=== PATIENT | male | born 1945 | race Caucasian/White ===

== ENCOUNTER 2020-11-25 09:00 | Outpatient (CLI) | payer MEDICARE | END 2020-11-25 23:59 | disposition critical access hospital (66) | LOC: EMS 09:00 | DX: R10.9 Unspecified abdominal pain (principal); R11.10 Vomiting, unspecified | CPT/HCPCS: A0425; A0427 ==

== ENCOUNTER 2020-11-25 09:18 | Emergency (ER) | payer MEDICARE ==
[2020-11-25] MEDS ORDERED: LACTATED RINGERS 1,000 ML IV STA ×2 (09:49→12:23)
[2020-11-25] MEDS ORDERED: ONDANSETRON 4 MG/2 ML VIAL IVP STA (09:49)
[2020-11-25] MEDS ORDERED: MORPHINE 2 MG/ML CARPUJECT IVP STA (09:49)
[2020-11-25 10:01] LABS: BASOPHILS % (AUTO) 0.5 %; EOSINOPHILS # (AUTO) 0.2 10^3/uL (0.0-0.7); EOSINOPHILS % (AUTO) 2.7 %; LYMPHOCYTES # (AUTO) 0.8 10^3/uL (1.5-3.5); LYMPHOCYTES % (AUTO) 11.3 %; MEAN CORPUSCULAR HEMOGLOBIN 30.7 pg (27.0-31.0); MEAN CORPUSCULAR HGB CONC 34.7 g/dL (32.0-36.0); MEAN CORPUSCULAR VOLUME 88.5 fL (80.0-94.0); MEAN PLATELET VOLUME 9.4 fL (7.4-11.4); MONOCYTES # (AUTO) 0.5 10^3/uL (0.0-1.0); MONOCYTES % (AUTO) 7.3 %; NEUTROPHILS # (AUTO) 5.8 10^3/uL (1.5-6.6); NEUTROPHILS % (AUTO) 78.1 %; PLT - PLATELET COUNT 182 10^3/uL (130-450); RED BLOOD COUNT 4.88 10^6/uL (4.70-6.10); RED CELL DISTRIBUTION WIDTH 13.2 % (12.0-15.0); WHITE BLOOD COUNT 7.4 x10^3/uL (4.8-10.8)
[2020-11-25] MEDS ORDERED: IOVERSOL 320 100 ML VIAL IVP ONE ×2 (10:04→13:43)
[2020-11-25 10:23] LABS: ALBUMIN/GLOBULIN RATIO 1.6 (1.0-2.2); BILIRUBIN,TOTAL 1.3 mg/dL (0.2-1.0); CALCIUM 9.3 mg/dL (8.5-10.3); CREATININE 1.1 mg/dL (0.6-1.2); TOTAL PROTEIN 6.5 g/dL (6.7-8.2)
[2020-11-25] MEDS ORDERED: HYDROmorphone 1 MG/ML CARPUJECT IVP STA (10:51)
--- NOTE | 2020-11-25 11:15 | CT Report ---
PROCEDURE: Abdomen/Pelvis W INDICATIONS: Abdominal pain, acute, nonlocalized CONTRAST: IV CONTRAST: Optiray 320 ml: 100 PO CONTRAST: *NO PO CONTRAST TECHNIQUE: After the administration of IV contrast, 5 mm thick sections acquired from the diaphragms to the symp hysis. 5 mm thick coronal and sagittal reformats were acquired. For radiation dose reduction, the f ollowing was used: automated exposure control, adjustment of mA and/or kV according to patient size. COMPARISON: None. FINDINGS: Image quality: Excellent. ABDOMEN: Lung bases: Dependent atelectasis in posterior aspect of bilateral lung bases are seen. Heart size i s enlarged, no pericardial effusion. Mediastinum to me hardware is seen. Moderate amount of atheroscl erotic disease is seen. Solid organs: Liver and spleen are normal in size and enhancement. Gallbladder is within normal patino its. Biliary system is non dilated. Pancreas enhances normally. No adrenal nodules. Multiple bilate ral renal cysts are seen measures up to 5.3 x 4.9 cm cm in size in midpole of left kidney and up to 6 .4 x 6.3 cm in size in lower pole of right kidney. Kidneys are normal in size. There is prominence of left renal collecting system and left proximal ureter 4 mm stone is seen in midfoot left ureter at L 4 level series 3 image 49. No right-sided hydronephrosis. Peritoneum and bowel: There is a small hiatal hernia. Bowel loops demonstrate normal wall thickness and caliber. No free fluid or air. Appendix is visualized and is within normal limits. Extensive si gmoid diverticulosis is seen, no CT evidence of acute diverticulitis. No abscess collection. Nodes and vessels: No retroperitoneal or mesenteric adenopathy by size criteria. Ectasia of infraren al abdominal aorta is seen measures up to 2.6 cm in largest AP diameter. No abdominal aortic aneurysm . IVC is normal in size. Moderate amount of atherosclerotic disease is seen throughout the abdominal aorta. Miscellaneous: No ventral hernias. PELVIS: Genitourinary: Bladder wall thickness is normal. Enlarged prostate gland is seen with mild mass eff ect on floor of urinary bladder. Miscellaneous: No inguinal hernias or adenopathy. Bones: No suspicious bony lesions. No vertebral body compression fractures. Degenerative disc dise ase throughout lower thoracic and lumbar spine is seen. IMPRESSION: 1. 4 mm left mid ureteral stone with moderate left-sided hydronephrosis and proximal hydroureter. Oleksandr ateral renal cysts. No right-sided hydronephrosis. Normal-appearing urinary bladder. Enlarged prostat e gland with mass effect on floor of urinary bladder. 2. No bowel obstruction. Normal appendix. No free fluid of free air. Sigmoid diverticulosis without e vidence of acute diverticulitis. 3. Mild ectasia of infrarenal abdominal aorta. Extensive atherosclerotic disease. Reviewed by: Wang Darling MD on 11/25/2020 10:14 AM [facility] Approved by: Wang Darling MD on 11/25/2020 10:14 AM [facility] Station ID: [id number]
[2020-11-25 12:33] LABS: BILIRUBIN,URINE NEGATIVE (NEGATIVE); GLUCOSE, URINE (UA) NEGATIVE (NEGATIVE); KETONES,URINE (UA) 15 mg/dL (NEGATIVE); LEUKOCYTE ESTERASE, URINE NEGATIVE (NEGATIVE); NITRITE,URINE NEGATIVE (NEGATIVE); OCCULT BLOOD,URINE LARGE (NEGATIVE); PROTEIN,URINE NEGATIVE (NEGATIVE); UROBILINOGEN,URINE 0.2 (NORMAL) E.U./dL (NORMAL)
[2020-11-25 12:34] VITALS: BP 120/68
[2020-11-25 12:34] LABS: CLARITY,URINE SL. CLOUDY (CLEAR)
[2020-11-25 12:47] LABS: BACTERIA,URINE Rare /HPF (None Seen); MUCUS,URINE Few Strands; SQUAMOUS EPITHELIAL CELL,UR RARE Squamous (<= Few)
--- NOTE | 2020-12-02 07:46 | ED Physician Documentation ---
History of Present Illness - Stated complaint Stated Complaint: L FLANK PX - Chief complaint Chief Complaint: Abd Pain - History obtained from History obtained from: Patient - Additonal information Additional information: 75-year-old man with past medical history of high blood pressure, hyperlipidemia, hypothyroidism presents with gradual onset left flank pain that is nonradiating, starting this morning when sitting on the toilet. Patient states he had a large watery bowel movement and then experienced 8 or 10 pain on his left side, sharp constant without exacerbating or relieving factors, asso ciated with nonbloody nonbilious nausea vomiting x5. He was given Zofran and fentanyl en route by EMS with improvement in symptoms. Denies urinary symptoms, abdominal pain fever, chest pain, shortness of breath, diaphoresis. Review of Systems Ten Systems: 10 systems reviewed and negative Constitutional: denies: Fever, Chills GI: reports: Abdominal Pain, Nausea, Vomiting : denies: Dysuria Musculoskeletal: reports: Back pain PD PAST MEDICAL HISTORY - Present Medications Home Medications: Ambulatory Orders Medication Instructions Recorded Confirmed Aspirin 81 mg PO 03/28/13 03/28/13 Atorvastatin Calcium 10 mg PO 03/28/13 03/28/13 Cholecalciferol (Vitamin D3) 2,000 unit PO 03/28/13 03/28/13 [Vitamin D-3] Glucosamine Sulfate Dipot Chlr 1,000 mg PO 03/28/13 03/28/13 [Glucosamine] Ibuprofen 400 mg PO 03/28/13 03/28/13 Levothyroxine [Synthroid] 125 mcg PO QDAC 03/28/13 03/28/13 Lisinopril [Prinivil] 10 mg PO 03/28/13 03/28/13 Loratadine [Claritin] 10 mg 03/28/13 03/28/13 Metoprolol Succinate [Toprol Xl] 25 mg PO ONCE 03/28/13 03/28/13 Multivitamin [Multivitamins] 1 each PO 03/28/13 03/28/13 [place]-3 Fatty Acids/Fish Oil 1 each PO 03/28/13 03/28/13 [[place] 3 1,000 mg Softgel] S-Adenosylmethionine Sul Tosyl 200 mg PO 03/28/13 03/28/13 [Nic-E] Sulfamethox/Trimeth 800/160 1 each PO BID #14 tablet 03/28/13 [Bactrim Ds] Tamsulosin HCl [Flomax] 0.4 mg PO QDAC 14 Days #14 tab 11/25/20 HYDROcod/ACETAM 5/325 [[place] 5/325] 1 - 2 ea PO Q6H PRN #15 11/26/20 Ondansetron Odt [Zofran] 4 mg TL Q6H PRN #10 tab 11/26/20 Oxycodone HCl/Acetaminophen 1 each PO Q6H PRN #8 tab 11/26/20 [Percocet 10-325 mg Tablet] Sennosides/Docusate Sodium 1 each PO QDAC PRN #14 tab 11/26/20 [Senna-Docusate Sodium Tablet] polyethylene glycoL 3350 [Miralax] 17 gm PO DAILY PRN 14 Days #1 11/26/20 packet - Allergies Allergies/Adverse Reactions: Allergies Allergy/AdvReac Type Severity Reaction Status Date / Time cephalexin monohydrate * AdvReac Unknown Rash Verified 11/26/20 00:11 [From Keflex] PD ED PE NORMAL - Vitals Vital signs reviewed: Yes - General General: Alert and oriented X 3, No acute distress, Well developed/nourished - HEENT HEENT: Atraumatic, PERRL, EOMI - Neck Neck: Supple, no meningeal sign - Cardiac Cardiac: RRR - Respiratory Respiratory: No respiratory distress, Clear bilaterally - Abdomen Abdomen: Non tender, Non distended - Male Male : Deferred - Rectal Rectal: Deferred - Back Back: Other (L CVA ttp) - Derm Derm: Normal color, No rash - Extremities Extremities: No deformity - Neuro Neuro: Alert and oriented X 3 - Psych Psych: Normal mood, Normal affect Results - Vitals Vitals: Oxygen O2 Source Room air - Labs Labs: Laboratory Tests 11/25/20 11/25/20 11/25/20 09:58 09:58 11:00 WBC 7.4 RBC 4.88 Hgb 15.0 Hct 43.2 MCV 88.5 MCH 30.7 MCHC 34.7 RDW 13.2 Plt Count 182 MPV 9.4 Neut # (Auto) 5.8 Lymph # (Auto) 0.8 L [place] # (Auto) 0.5 Eos # (Auto) 0.2 Baso # (Auto) 0.0 Absolute Nucleated RBC 0.00 Nucleated RBC % 0.0 Sodium 141 Potassium 3.8 Chloride 106 Carbon Dioxide 18 L Anion Gap 17.0 H BUN 27 H Creatinine 1.1 Estimated GFR (MDRD) 65 L Glucose 148 H Lactic Acid 2.4 H Calcium 9.3 Total Bilirubin 1.3 H AST 25 ALT 35 Alkaline Phosphatase 66 Total Protein 6.5 L Albumin 4.0 Globulin 2.5 Albumin/Globulin Ratio 1.6 Lipase 35 Urine Color Urine Clarity Urine pH Ur Specific [place] Urine Protein Urine Glucose (UA) Urine Ketones Urine Occult Blood Urine Nitrite Urine Bilirubin Urine Urobilinogen Ur Leukocyte Esterase Urine RBC Urine WBC Ur Squamous Epith Cells Urine Bacteria Urine Mucus Ur Microscopic Review Urine Culture Comments 11/25/20 11:45 WBC RBC Hgb Hct MCV MCH MCHC RDW Plt Count MPV Neut # (Auto) Lymph # (Auto) [place] # (Auto) Eos # (Auto) Baso # (Auto) Absolute Nucleated RBC Nucleated RBC % Sodium Potassium Chloride Carbon Dioxide Anion Gap BUN Creatinine Estimated GFR (MDRD) Glucose Lactic Acid Calcium Total Bilirubin AST ALT Alkaline Phosphatase Total Protein Albumin Globulin Albumin/Globulin Ratio Lipase Urine Color YELLOW Urine Clarity SL. CLOUDY Urine pH 8.0 H Ur Specific [place] 1.010 Urine Protein NEGATIVE Urine Glucose (UA) NEGATIVE Urine Ketones 15 H Urine Occult Blood LARGE H Urine Nitrite NEGATIVE Urine Bilirubin NEGATIVE Urine Urobilinogen 0.2 (NORMAL) Ur Leukocyte Esterase NEGATIVE Urine RBC 11-25 H Urine WBC 4-5 Ur Squamous Epith Cells RARE Squamous Urine Bacteria Rare Urine Mucus Few Strands Ur Microscopic Review INDICATED Urine Culture Comments NOT INDICATED PD MEDICAL DECISION MAKING - ED course ED course: 75-year-old man presented with left-sided mid ureteral 4 mm stone with moderate hydronephrosis. Urinalysis noninfected. Will DC home with Flomax and ibuprofen as needed for pain. Follow-up urology. Strict return precautions given. Departure - Departure Disposition: 01 Home, Self Care Clinical Impression: Kidney stone on left side, Hydronephrosis Condition: Good Instructions: Hydronephrosis Ch, Kidney Stones Prescriptions: Tamsulosin HCl [Flomax] 0.4 mg PO QDAC 14 Days #14 tab Comments: You were seen in the emergency department for an obstructing left kidney stone in the mid ureter. It is 4 mm in size so it may be able to pass on its own, however your kidney is showing signs of hydronephrosis (backup of fluid into the kidney due to obstruction from the stone). Your kidney function is okay and you do not show any signs of infection on your urine studies. You should follow-up with urology tomorrow to make appointment in the clinic. Return immediately if you have any fevers. Return for new or other worsening symptoms or other concerns. [facility] - Urology [email or web address] [address] [place] [address] ~21.7 ut Discharge Date/Time: 11/25/20 14:19
== END 2020-11-25 14:19 | disposition home or self-care (01) ==
LOC: EDUNIT# → EDBD → ED 09:18
DX: N13.2 Hydronephrosis with renal and ureteral calculous obstruction (principal); I10 Essential (primary) hypertension; E78.5 Hyperlipidemia, unspecified; E03.9 Hypothyroidism, unspecified; Z79.82 Long term (current) use of aspirin
CPT/HCPCS: 36415; 74177; 80053; 81001; 83605; 83690; 85025; 93005; 96361; 96374; 96375; 99284; J1170; J7120; Q9967; 81003; 87086

== ENCOUNTER 2020-11-26 00:08 | Emergency (ER) | payer MEDICARE ==
[2020-11-26] MEDS ORDERED: SODIUM CHLORIDE 0.9% 1,000 ML IV STA (00:47)
[2020-11-26] MEDS ORDERED: HYDROmorphone 1 MG/ML CARPUJECT IVP STA (00:47)
[2020-11-26] MEDS ORDERED: ONDANSETRON 4 MG/2 ML VIAL IVP STA (00:47)
[2020-11-26] MEDS ORDERED: HYDROcod/ACET 5/325 Prepack 4 PO STA (01:30)
[2020-11-26] MEDS ORDERED: ONDANSETRON ODT 4 MG Prepack 2 TL PRN (01:30)
--- NOTE | 2020-11-26 01:54 | ED Physician Documentation ---
History of Present Illness - Stated complaint Stated Complaint: ABD PX - Chief complaint Chief Complaint: Abd Pain - History obtained from History obtained from: Patient - Additonal information Additional information: Emergency department chief complaint of recurrence of left flank pain after being diagnosed with a kidney stone within the last 24 hours. According to records, CT scan showed a 5 mm mid ureteral stone on the left. Patient states that what ever he was given in the emergency department helped his pain, but over the ensuing hours, the pain crept back as the medications seem to wear off. Patient states he is not sure what he was prescribed, but has not taken anything at home for the pain. Review of records reveals that the patient was prescribed Flomax and no analgesia. Patient does note that he has also been nauseated because the pain has been quite bad. Patient denies any other complaints at this time no new symptoms since discharge other than recurrence of the pain and onset of nausea. Review of Systems Ten Systems: 10 systems reviewed and negative Constitutional: reports: Reviewed and negative Eyes: reports: Reviewed and negative Ears: reports: Reviewed and negative Nose: reports: Reviewed and negative Throat: reports: Reviewed and negative Cardiac: reports: Chest pain / pressure Respiratory: reports: Reviewed and negative. denies: Dyspnea GI: reports: Reviewed and negative : reports: Reviewed and negative Skin: reports: Reviewed and negative Musculoskeletal: reports: Reviewed and negative Neurologic: reports: Reviewed and negative Psychiatric: reports: Reviewed and negative Endocrine: reports: Reviewed and negative Immunocompromised: reports: Reviewed and negative PD PAST MEDICAL HISTORY - Past Medical History Past Medical History: Yes Cardiovascular: Hypertension, Coronary artery disease Respiratory: Asthma GI: GERD : Kidney stones Psych: Anxiety - Past Surgical History Past Surgical History: Yes Cardiovascular: CABG - Present Medications Home Medications: Ambulatory Orders Medication Instructions Recorded Confirmed Aspirin 81 mg PO 03/28/13 03/28/13 Atorvastatin Calcium 10 mg PO 03/28/13 03/28/13 Cholecalciferol (Vitamin D3) 2,000 unit PO 03/28/13 03/28/13 [Vitamin D-3] Glucosamine Sulfate Dipot Chlr 1,000 mg PO 03/28/13 03/28/13 [Glucosamine] Ibuprofen 400 mg PO 03/28/13 03/28/13 Levothyroxine [Synthroid] 125 mcg PO QDAC 03/28/13 03/28/13 Lisinopril [Prinivil] 10 mg PO 03/28/13 03/28/13 Loratadine [Claritin] 10 mg 03/28/13 03/28/13 Metoprolol Succinate [Toprol Xl] 25 mg PO ONCE 03/28/13 03/28/13 Multivitamin [Multivitamins] 1 each PO 03/28/13 03/28/13 [place]-3 Fatty Acids/Fish Oil 1 each PO 03/28/13 03/28/13 [[place] 3 1,000 mg Softgel] S-Adenosylmethionine Sul Tosyl 200 mg PO 03/28/13 03/28/13 [Nic-E] Sulfamethox/Trimeth 800/160 1 each PO BID #14 tablet 03/28/13 [Bactrim Ds] Tamsulosin HCl [Flomax] 0.4 mg PO QDAC 14 Days #14 tab 11/25/20 HYDROcod/ACETAM 5/325 [[place] 5/325] 1 - 2 ea PO Q6H PRN #15 11/26/20 Ondansetron Odt [Zofran] 4 mg TL Q6H PRN #10 tab 11/26/20 - Allergies Allergies/Adverse Reactions: Allergies Allergy/AdvReac Type Severity Reaction Status Date / Time cephalexin monohydrate * AdvReac Unknown Rash Verified 11/26/20 00:11 [From Keflex] - Social History Does the pt smoke?: No Smoking Status: Never smoker Does the pt drink ETOH?: Yes ETOH Use: Wine, Beer Does the pt have substance abuse?: No - Immunizations Immunizations are current?: Yes - POLST Patient has POLST: No PD ED PE NORMAL - Vitals Vital signs reviewed: Yes - General General: Alert and oriented X 3, No acute distress (Patient appears moderately uncomfortable but otherwise no apparent distress.), Well developed/nourished - HEENT HEENT: Atraumatic, PERRL, EOMI, Moist mucous membranes - Neck Neck: Supple, no meningeal sign - Cardiac Cardiac: RRR, No murmur, Strong equal pulses - Respiratory Respiratory: No respiratory distress, Clear bilaterally - Abdomen Abdomen: Soft, Non tender, Non distended - Derm Derm: Normal color, Warm and dry, No rash - Extremities Extremities: No deformity, No edema, No calf tenderness / cord - Neuro Neuro: Alert and oriented X 3, 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 He was found to be feeling much better after dose of Dilaudid. I did give the patient a prepack for both hydrocodone and Zofran until the stone passes. I suspect that the stone is continuing to move down the ureter, in addition to pain medication wearing off, and these 2 factors are likely what has caused the patient's recurrence of pain. There is no fever or other concerning symptom to go along with this and prompt further investigation or repeat studies. We have discussed home management of the symptoms, as well as the usual indications for return Departure - Departure Disposition: 01 Home, Self Care Clinical Impression: Renal colic on left side Condition: Stable Instructions: ED Stone Renal W Colic Prescriptions: HYDROcod/ACETAM 5/325 [[place] 5/325] 1 - 2 ea PO Q6H PRN #15 PRN Reason: Pain Ondansetron Odt [Zofran] 4 mg TL Q6H PRN #10 tab PRN Reason: Nausea / Vomiting Discharge Date/Time: 11/26/20 02:09
[2020-11-26 02:04] VITALS: BP 126/61
== END 2020-11-26 02:09 | disposition home or self-care (01) ==
LOC: ED 00:08
DX: N20.1 Calculus of ureter (principal); R11.0 Nausea; I10 Essential (primary) hypertension; Z79.82 Long term (current) use of aspirin
CPT/HCPCS: 96374; 99284

== ENCOUNTER 2020-11-26 21:12 | Emergency (ER) | payer MEDICARE ==
--- NOTE | 2020-11-26 21:16 | ED Physician Documentation ---
History of Present Illness - Stated complaint Stated Complaint: LT FLANK PX - History obtained from History obtained from: Patient - Additonal information Additional information: 75-year-old man with past medical history of high blood pressure, hyperlipidemia, hypothyroidism presents with gradual onset left flank pain that is nonradiating, starting this morning while sitting on the toilet. Patient states that he had a large watery bowel movement and then experienced 8 out of 10 pain on his left side, sharp constant without exacerbating or relieving factors, associated with nonbloody nonbilious nausea vomiting x5. He was given Zofran en route by EMS with some improvement in symptoms as well as with fentanyl. Denies urinary symptoms, abd pain, fever, chest pain, shortness of breath, diaphoresis. Review of Systems Ten Systems: 10 systems reviewed and negative Constitutional: denies: Fever, Chills GI: reports: Abdominal Pain : denies: Dysuria Musculoskeletal: reports: Back pain PD PAST MEDICAL HISTORY - Past Medical History Cardiovascular: Hypertension, Coronary artery disease Respiratory: Asthma GI: GERD : Kidney stones Psych: Anxiety - Past Surgical History Past Surgical History: Yes Cardiovascular: CABG - Present Medications Home Medications: Ambulatory Orders Medication Instructions Recorded Confirmed Aspirin 81 mg PO 03/28/13 03/28/13 Atorvastatin Calcium 10 mg PO 03/28/13 03/28/13 Cholecalciferol (Vitamin D3) 2,000 unit PO 03/28/13 03/28/13 [Vitamin D-3] Glucosamine Sulfate Dipot Chlr 1,000 mg PO 03/28/13 03/28/13 [Glucosamine] Ibuprofen 400 mg PO 03/28/13 03/28/13 Levothyroxine [Synthroid] 125 mcg PO QDAC 03/28/13 03/28/13 Lisinopril [Prinivil] 10 mg PO 03/28/13 03/28/13 Loratadine [Claritin] 10 mg 03/28/13 03/28/13 Metoprolol Succinate [Toprol Xl] 25 mg PO ONCE 03/28/13 03/28/13 Multivitamin [Multivitamins] 1 each PO 03/28/13 03/28/13 [place]-3 Fatty Acids/Fish Oil 1 each PO 03/28/13 03/28/13 [[place] 3 1,000 mg Softgel] S-Adenosylmethionine Sul Tosyl 200 mg PO 03/28/13 03/28/13 [Nic-E] Sulfamethox/Trimeth 800/160 1 each PO BID #14 tablet 03/28/13 [Bactrim Ds] Tamsulosin HCl [Flomax] 0.4 mg PO QDAC 14 Days #14 tab 11/25/20 HYDROcod/ACETAM 5/325 [[place] 5/325] 1 - 2 ea PO Q6H PRN #15 11/26/20 Ondansetron Odt [Zofran] 4 mg TL Q6H PRN #10 tab 11/26/20 - Allergies Allergies/Adverse Reactions: Allergies Allergy/AdvReac Type Severity Reaction Status Date / Time cephalexin monohydrate * AdvReac Unknown Rash Verified 11/26/20 00:11 [From Keflex] - Social History Does the pt smoke?: No Smoking Status: Never smoker Does the pt drink ETOH?: Yes Does the pt have substance abuse?: No - Immunizations Immunizations are current?: Yes - POLST Patient has POLST: No PD ED PE NORMAL - Vitals Vital signs reviewed: Yes - General General: Alert and oriented X 3, No acute distress - HEENT HEENT: Atraumatic - Cardiac Cardiac: RRR - Respiratory Respiratory: No respiratory distress, Clear bilaterally - Abdomen Abdomen: Non tender, Non distended - Male Male : Deferred - Rectal Rectal: Deferred - Back Back: Other (L CVA ttp) - Derm Derm: Normal color - Extremities Extremities: No deformity - Neuro Neuro: Alert and oriented X 3 - Psych Psych: Normal mood, Normal affect Results - Vitals Vitals: Oxygen O2 Source Room air PD MEDICAL DECISION MAKING - ED course ED course: 75-year-old man presented with left-sided mid ureteral 4 mm stone with moderate hydronephrosis. Urinalysis noninfected. Will DC home with Flomax and ibuprofen as needed for pain. Follow-up urology. Strict return precautions given
[2020-11-26] MEDS ORDERED: LACTATED RINGERS 1,000 ML IV STA (21:36)
[2020-11-26] MEDS ORDERED: MORPHINE 10 MG/ML VIAL IVP STA (21:37)
[2020-11-26 21:39] LABS: BILIRUBIN,URINE NEGATIVE (NEGATIVE); GLUCOSE, URINE (UA) NEGATIVE (NEGATIVE); KETONES,URINE (UA) TRACE mg/dL (NEGATIVE); LEUKOCYTE ESTERASE, URINE NEGATIVE (NEGATIVE); NITRITE,URINE NEGATIVE (NEGATIVE); OCCULT BLOOD,URINE MODERATE (NEGATIVE); PH,URINE 5.5 PH (5.0-7.5); PROTEIN,URINE NEGATIVE (NEGATIVE); UROBILINOGEN,URINE 0.2 (NORMAL) E.U./dL (NORMAL)
[2020-11-26 21:40] LABS: CLARITY,URINE CLEAR (CLEAR)
[2020-11-26 21:49] LABS: BACTERIA,URINE None Seen /HPF (None Seen); SQUAMOUS EPITHELIAL CELL,UR NONE SEEN (<= Few)
[2020-11-26 21:50] LABS: BASOPHILS # (AUTO) 0.1 10^3/uL (0.0-0.1); BASOPHILS % (AUTO) 0.5 %; EOSINOPHILS # (AUTO) 0.1 10^3/uL (0.0-0.7); EOSINOPHILS % (AUTO) 0.9 %; HGB - HEMOGLOBIN 13.4 g/dL (14.0-18.0); LYMPHOCYTES # (AUTO) 0.5 10^3/uL (1.5-3.5); LYMPHOCYTES % (AUTO) 4.9 %; MEAN CORPUSCULAR HEMOGLOBIN 30.9 pg (27.0-31.0); MEAN CORPUSCULAR HGB CONC 33.4 g/dL (32.0-36.0); MEAN CORPUSCULAR VOLUME 92.4 fL (80.0-94.0); MEAN PLATELET VOLUME 9.4 fL (7.4-11.4); MONOCYTES # (AUTO) 0.7 10^3/uL (0.0-1.0); MONOCYTES % (AUTO) 7.3 %; NEUTROPHILS # (AUTO) 7.9 10^3/uL (1.5-6.6); NEUTROPHILS % (AUTO) 86.2 %; PLT - PLATELET COUNT 170 10^3/uL (130-450); RED BLOOD COUNT 4.34 10^6/uL (4.70-6.10); RED CELL DISTRIBUTION WIDTH 13.5 % (12.0-15.0); WHITE BLOOD COUNT 9.1 x10^3/uL (4.8-10.8)
[2020-11-26 21:57] LABS: CALCIUM 8.8 mg/dL (8.5-10.3); CREATININE 1.2 mg/dL (0.6-1.2)
--- NOTE | 2020-11-26 22:03 | ED Physician Documentation ---
History of Present Illness - Stated complaint Stated Complaint: LT FLANK PX - Chief complaint Chief Complaint: Abd Pain - History obtained from History obtained from: Patient - Additonal information Additional information: 75-year-old man, just seen here multiple times over the past 24 hours for left 4 mm mid ureter stone with persistent pain after discharge, given oxycodone on 2nd visit for pain control, presents again this evening because he is unable to sleep and states he feels constipated and has not had a BM since the pain initially began. States that his pain improved with IV dilaudid in the emergency department and is unrelieved with oxycodone. earlier today it was 8/10, LUQ radiating to L flank, and has now regressed to a 3/10. sharp, intermittent. denies fevers/urinary sx. denies vomiting . Review of Systems Ten Systems: 10 systems reviewed and negative Constitutional: denies: Fever, Chills GI: reports: Abdominal Pain. denies: Vomiting : denies: Dysuria Musculoskeletal: reports: Back pain PD PAST MEDICAL HISTORY - Past Medical History Cardiovascular: Hypertension, Coronary artery disease Respiratory: Asthma GI: GERD : Kidney stones Psych: Anxiety - Past Surgical History Past Surgical History: Yes Cardiovascular: CABG - Present Medications Home Medications: Ambulatory Orders Medication Instructions Recorded Confirmed Aspirin 81 mg PO 03/28/13 03/28/13 Atorvastatin Calcium 10 mg PO 03/28/13 03/28/13 Cholecalciferol (Vitamin D3) 2,000 unit PO 03/28/13 03/28/13 [Vitamin D-3] Glucosamine Sulfate Dipot Chlr 1,000 mg PO 03/28/13 03/28/13 [Glucosamine] Ibuprofen 400 mg PO 03/28/13 03/28/13 Levothyroxine [Synthroid] 125 mcg PO QDAC 03/28/13 03/28/13 Lisinopril [Prinivil] 10 mg PO 03/28/13 03/28/13 Loratadine [Claritin] 10 mg 03/28/13 03/28/13 Metoprolol Succinate [Toprol Xl] 25 mg PO ONCE 03/28/13 03/28/13 Multivitamin [Multivitamins] 1 each PO 03/28/13 03/28/13 [place]-3 Fatty Acids/Fish Oil 1 each PO 03/28/13 03/28/13 [[place] 3 1,000 mg Softgel] S-Adenosylmethionine Sul Tosyl 200 mg PO 03/28/13 03/28/13 [Nic-E] Sulfamethox/Trimeth 800/160 1 each PO BID #14 tablet 03/28/13 [Bactrim Ds] Tamsulosin HCl [Flomax] 0.4 mg PO QDAC 14 Days #14 tab 11/25/20 HYDROcod/ACETAM 5/325 [[place] 5/325] 1 - 2 ea PO Q6H PRN #15 11/26/20 Ondansetron Odt [Zofran] 4 mg TL Q6H PRN #10 tab 11/26/20 Oxycodone HCl/Acetaminophen 1 each PO Q6H PRN #8 tab 11/26/20 [Percocet 10-325 mg Tablet] Sennosides/Docusate Sodium 1 each PO QDAC PRN #14 tab 11/26/20 [Senna-Docusate Sodium Tablet] polyethylene glycoL 3350 [Miralax] 17 gm PO DAILY PRN 14 Days #1 11/26/20 packet - Allergies Allergies/Adverse Reactions: Allergies Allergy/AdvReac Type Severity Reaction Status Date / Time cephalexin monohydrate * AdvReac Unknown Rash Verified 11/26/20 00:11 [From Keflex] - Social History Does the pt smoke?: No Smoking Status: Never smoker Does the pt drink ETOH?: Yes Does the pt have substance abuse?: No - Immunizations Immunizations are current?: Yes - POLST Patient has POLST: No PD ED PE NORMAL - Vitals Vital signs reviewed: Yes - General General: Alert and oriented X 3, No acute distress, Well developed/nourished - HEENT HEENT: Atraumatic, PERRL, EOMI - Neck Neck: Supple, no meningeal sign - Cardiac Cardiac: RRR - Respiratory Respiratory: No respiratory distress, Clear bilaterally - Abdomen Abdomen: Non tender, Non distended - Male Male : Deferred - Rectal Rectal: Deferred - Back Back: Other (L CVA ttp) - Derm Derm: Normal color - Extremities Extremities: No deformity - Neuro Neuro: Alert and oriented X 3 Results - Vitals Vitals: Vital Signs - 24 hr 11/26/20 21:18 Temperature 36.7 C Heart Rate 63 Respiratory 16 Rate Blood Pressure 151/86 H O2 Saturation 98 Oxygen O2 Source Room air - Labs Labs: Laboratory Tests 11/26/20 11/26/20 11/26/20 21:15 21:43 21:43 WBC 9.1 RBC 4.34 L Hgb 13.4 L Hct 40.1 L MCV 92.4 MCH 30.9 MCHC 33.4 RDW 13.5 Plt Count 170 MPV 9.4 Neut # (Auto) 7.9 H Lymph # (Auto) 0.5 L [place] # (Auto) 0.7 Eos # (Auto) 0.1 Baso # (Auto) 0.1 Absolute Nucleated RBC 0.00 Nucleated RBC % 0.0 Sodium 134 L Potassium 4.3 Chloride 104 Carbon Dioxide 21 Anion Gap 9.0 BUN 24 H Creatinine 1.2 Estimated GFR (MDRD) 59 L Glucose 128 H Calcium 8.8 Urine Color DARK YELLOW Urine Clarity CLEAR Urine pH 5.5 Ur Specific [place] >=1.030 H Urine Protein NEGATIVE Urine Glucose (UA) NEGATIVE Urine Ketones TRACE Urine Occult Blood MODERATE H Urine Nitrite NEGATIVE Urine Bilirubin NEGATIVE Urine Urobilinogen 0.2 (NORMAL) Ur Leukocyte Esterase NEGATIVE Urine RBC 11-25 H Urine WBC 0-3 Ur Squamous Epith Cells NONE SEEN Urine Bacteria None Seen Ur Microscopic Review INDICATED Urine Culture Comments NOT INDICATED PD MEDICAL DECISION MAKING - ED course ED course: 75-year-old man, recently diagnosed with kidney stone with moderate left hydronephrosis presents with persistent pain and with new onset constipation and sensation of bloating in the abdomen. Bedside ultrasound without worsening of his hydronephrosis. Urine still clear of infection. Creatinine not significantly worsening. Patient states that he is working on referral for urology through his primary doctor/insurance. will give ivf, pain meds, reassess. Improvement in pain s/p IV morphine. patient requesting dose of dilaudid prior to discharge since it helped yesterday. his is driving him home. will also give script for stool softener/laxative. Departure - Departure Disposition: 01 Home, Self Care Clinical Impression: Kidney stone, Bloating, Constipation Condition: Good Instructions: ED Constipation, Kidney Stones Prescriptions: polyethylene glycoL 3350 [Miralax] 17 gm PO DAILY PRN 14 Days #1 packet PRN Reason: Constipation Oxycodone HCl/Acetaminophen [Percocet 10-325 mg Tablet] 1 each PO Q6H PRN #8 tab PRN Reason: Pain Sennosides/Docusate Sodium [Senna-Docusate Sodium Tablet] 1 each PO QDAC PRN #14 tab PRN Reason: Constipation Comments: You have been seen in the emergency department for follow-up of kidney stone as well as developing constipation. Make sure that you drink tons of water (at least 8 cups of water a day.) Your kidney function tests have not significantly changed from when your last tested. Your urine does not show signs of infection. We gave you IV fluids and pain medication. Oxycodone and Percocet can cause constipation so you should take MiraLAX and a stool softener to prevent this. Return to the emergency department if you have any new or wo rsening symptoms or other concerns. Follow-up with urology.
[2020-11-26] MEDS ORDERED: HYDROmorphone 1 MG/ML CARPUJECT IVP STA (22:21)
[2020-11-26 22:46] VITALS: BP 148/90
== END 2020-11-26 23:05 | disposition home or self-care (01) ==
LOC: ED 21:12
DX: N13.2 Hydronephrosis with renal and ureteral calculous obstruction (principal); K59.00 Constipation, unspecified; R11.2 Nausea with vomiting, unspecified; I10 Essential (primary) hypertension; E78.5 Hyperlipidemia, unspecified; E03.9 Hypothyroidism, unspecified; Z79.82 Long term (current) use of aspirin
CPT/HCPCS: 36415; 80048; 81001; 85025; 96374; 96375; 99283; 99284; J1170; J7120; 81003; 87086

== ENCOUNTER 2021-12-04 16:55 | Emergency (ER) | payer MEDICARE ==
--- NOTE | 2021-12-04 17:20 | ED Physician Documentation ---
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 Over the last 3 days he has noticed especially at night a pulsating sensation to the left of midline in the abdomen radiating up to the chest. Does not radiate to the back. He took a 2 mile walk today which did not make the pain worse, it seems worse when he is trying to rest and is supine. There is no associated pedal edema or shortness of breath. We brought the to the bedside, and she was able to corroborate that he does have a history of a murmur with some sort of leaky valve, she does not know the specifics. Review of Systems Ten Systems: 10 systems reviewed and negative Constitutional: denies: Fever, Chills Ears: reports: Reviewed and negative Nose: reports: Reviewed and negative Throat: reports: Reviewed and negative Cardiac: reports: Reviewed and negative Respiratory: reports: Reviewed and negative PD PAST MEDICAL HISTORY - Past Medical History Cardiovascular: Hypertension, Coronary artery disease Respiratory: Asthma GI: GERD : Kidney stones Psych: Anxiety - Past Surgical History Past Surgical History: Yes Cardiovascular: CABG - Present Medications Home Medications: Ambulatory Orders Medication Instructions Recorded Confirmed Aspirin 81 mg PO 03/28/13 03/28/13 Atorvastatin Calcium 10 mg PO 03/28/13 03/28/13 Cholecalciferol (Vitamin D3) 2,000 unit PO 03/28/13 03/28/13 [Vitamin D-3] Glucosamine Sulfate Dipot Chlr 1,000 mg PO 03/28/13 03/28/13 [Glucosamine] Ibuprofen 400 mg PO 03/28/13 03/28/13 Levothyroxine [Synthroid] 125 mcg PO QDAC 03/28/13 03/28/13 Loratadine [Claritin] 10 mg 03/28/13 03/28/13 Metoprolol Succinate [Toprol Xl] 25 mg PO ONCE 03/28/13 03/28/13 Multivitamin [Multivitamins] 1 each PO 03/28/13 03/28/13 [place]-3 Fatty Acids/Fish Oil 1 each PO 03/28/13 03/28/13 [[place] 3 1,000 mg Softgel] S-Adenosylmethionine Sul Tosyl 200 mg PO 03/28/13 03/28/13 [Nic-E] Sulfamethox/Trimeth 800/160 1 each PO BID #14 tablet 03/28/13 [Bactrim Ds] lisinopriL [Prinivil] 10 mg PO 03/28/13 03/28/13 Tamsulosin HCl [Flomax] 0.4 mg PO QDAC 14 Days #14 tab 11/25/20 HYDROcod/ACETAM 5/325 [[place] 5/325] 1 - 2 ea PO Q6H PRN #15 11/26/20 Ondansetron Odt [Zofran] 4 mg TL Q6H PRN #10 tab 11/26/20 Oxycodone HCl/Acetaminophen 1 each PO Q6H PRN #8 tab 11/26/20 [Percocet 10-325 mg Tablet] Sennosides/Docusate Sodium 1 each PO QDAC PRN #14 tab 11/26/20 [Senna-Docusate Sodium Tablet] polyethylene glycoL 3350 [Miralax] 17 gm PO DAILY PRN 14 Days #1 11/26/20 packet Omeprazole 40 mg PO DAILY #30 cap 12/04/21 - Allergies Allergies/Adverse Reactions: Allergies Allergy/AdvReac Type Severity Reaction Status Date / Time cephalexin monohydrate * AdvReac Unknown Rash Verified 12/04/21 17:06 [From [employer]] - Social History Does the pt smoke?: No Smoking Status: Never smoker Does the pt drink ETOH?: Yes Does the pt have substance abuse?: No - Immunizations Immunizations are current?: Yes - POLST Patient has POLST: No PD ED PE NORMAL - Vitals Vital signs reviewed: Yes - General General: Alert and oriented X 3, No acute distress - Neck Neck: Supple, no meningeal sign, No bony TTP - Cardiac Cardiac: RRR, Other (He has a 1 out of 6 decrescendo systolic murmur heard best at the right upper sternal border and pulsatile JVP) - Respiratory Respiratory: No respiratory distress, Clear bilaterally - Abdomen Abdomen: Normal bowel sounds, Soft, Non tender - Back Back: No CVA TTP, No spinal TTP - Derm Derm: Normal color, Warm and dry - Extremities Extremities: No edema, No calf tenderness / cord - Neuro Neuro: Alert and oriented X 3, No motor deficit, No sensory deficit, Normal speech Eye Opening: Spontaneous Motor: Obeys Commands Verbal: Oriented GCS Score: 15 Results - Vitals Vitals: Vital Signs - 24 hr 12/04/21 12/04/21 16:59 19:05 Temperature 36.1 C L Heart Rate 57 L 60 Respiratory 16 15 Rate Blood Pressure 158/70 H 124/88 H O2 Saturation 100 99 Oxygen O2 Source Room air - EKG (time done) 1703 Rate: Rate (enter#) (54) Rhythm: NSR, LAE [place]: Normal Intervals: Normal [place] QRS: Normal Ischemia: Normal ST segments - Labs Labs: Laboratory Tests 12/04/21 12/04/21 12/04/21 17:25 17:25 17:25 WBC 8.0 RBC 4.54 L Hgb 14.4 Hct 42.8 MCV 94.3 H MCH 31.7 H MCHC 33.6 RDW 13.2 Plt Count 185 MPV 9.7 Neut # (Auto) 6.1 Lymph # (Auto) 0.9 L [place] # (Auto) 0.7 Eos # (Auto) 0.3 Baso # (Auto) 0.1 Absolute Nucleated RBC 0.00 Nucleated RBC % 0.0 Sodium 136 Potassium 4.0 Chloride 105 Carbon Dioxide 21 Anion Gap 10.0 BUN 39 H Creatinine 0.8 Estimated GFR (MDRD) 94 Glucose 93 Calcium 9.3 Total Bilirubin 0.7 AST 20 ALT 25 Alkaline Phosphatase 67 Troponin I High Sens 8.1 Total Protein 6.9 Albumin 3.9 Globulin 3.0 Albumin/Globulin Ratio 1.3 Lipase 41 - Rads (name of study) CTA CHEST/ABD Radiology: EMP read contemporaneously PD MEDICAL DECISION MAKING - ED course ED course: 76-year-old gentleman with pulsatile pain of the left mid abdomen radiating up to the chest. It is not exertional. It started a couple of days ago and seems to be intermittent, worse at rest and when supine. Of note a few days before that started develop a sciatica exacerbation and started taking naproxen. CT imaging to rule out vascular pathology was negative except for coronary disease, but did note hiatal hernia and other incidental findings which were shared with the patient and his and discussed need for follow-up imaging for the renal cyst and pulmonary nodule. He was pain-free while here but develops more pain but that resolved with a GI cocktail and as such I think the hiatal hernia in combination with gastritis from recent naproxen use may be contributing. There is no evidence of active coronary disease. Departure - Departure Disposition: 01 Home, Self Care Clinical Impression: Atypical chest pain, Hiatal hernia, Pulmonary nodule, Renal cyst Abdominal pain Qualifiers: Abdominal location: left upper quadrant Qualified Code(s): R10.12 - Left upper quadrant pain Condition: Good Record reviewed to determine appropriate education?: Yes Instructions: ED Abdominal Pain Unkn Cause Male Prescriptions: Omeprazole 40 mg PO DAILY #30 cap Comments: As discussed, I believe your pain today may be related to your hiatal hernia. Thankfully there is no evidence of aortic pathology nor acute coronary syndrome. I would discontinue the naproxen as that may be contributing as well. You can take acetaminophen instead. As discussed, findings on today's work-up demonstrated a small pulmonary nodule, the radiologist recommends a repeat CT scan in 6 to 12 months and a kidney cyst, also needing a repeat CT, renal protocol, in the same timeframe.
[2021-12-04 17:29] LABS: BASOPHILS # (AUTO) 0.1 10^3/uL (0.0-0.1); BASOPHILS % (AUTO) 0.7 %; EOSINOPHILS # (AUTO) 0.3 10^3/uL (0.0-0.7); EOSINOPHILS % (AUTO) 3.7 %; HCT - HEMATOCRIT 42.8 % (42.0-52.0); HGB - HEMOGLOBIN 14.4 g/dL (14.0-18.0); LYMPHOCYTES # (AUTO) 0.9 10^3/uL (1.5-3.5); LYMPHOCYTES % (AUTO) 11.2 %; MEAN CORPUSCULAR HEMOGLOBIN 31.7 pg (27.0-31.0); MEAN CORPUSCULAR HGB CONC 33.6 g/dL (32.0-36.0); MEAN CORPUSCULAR VOLUME 94.3 fL (80.0-94.0); MEAN PLATELET VOLUME 9.7 fL (7.4-11.4); MONOCYTES # (AUTO) 0.7 10^3/uL (0.0-1.0); MONOCYTES % (AUTO) 8.5 %; NEUTROPHILS # (AUTO) 6.1 10^3/uL (1.5-6.6); NEUTROPHILS % (AUTO) 75.5 %; PLT - PLATELET COUNT 185 10^3/uL (130-450); RED BLOOD COUNT 4.54 10^6/uL (4.70-6.10); RED CELL DISTRIBUTION WIDTH 13.2 % (12.0-15.0)
[2021-12-04] MEDS ORDERED: IOVERSOL 320 100 ML VIAL IVP ONE ×2 (17:33→18:59)
[2021-12-04 17:54] LABS: ALBUMIN 3.9 g/dL (3.2-5.5); ALBUMIN/GLOBULIN RATIO 1.3 (1.0-2.2); BILIRUBIN,TOTAL 0.7 mg/dL (0.2-1.0); CALCIUM 9.3 mg/dL (8.5-10.3); CREATININE 0.8 mg/dL (0.6-1.2); TOTAL PROTEIN 6.9 g/dL (6.7-8.2)
--- NOTE | 2021-12-04 19:09 | CT Report ---
PROCEDURE: ANGIO CHEST W/WO INDICATIONS: aorta protocol, chest/abd pain CONTRAST: IV CONTRAST: Optiray 320 ml: 100 PO CONTRAST: *NO PO CONTRAST TECHNIQUE: After the administration of intravenous contrast, 2 mm axial images were acquired from the pulmonary apices to the posterior costophrenic angles during the arterial phase. In addition, 1 mm lung kernel and 5 mm soft tissue kernel reconstructions were performed. 3-dimensional coronal oblique maximum int ensity projection (MIP) reformats, 8 mm axial MIP, and 5 mm coronal and sagittal MPR reformats were t hen performed through the thorax. For radiation dose reduction, the following was used: automated exp osure control, adjustment of mA and/or kV according to patient size. COMPARISON: None FINDINGS: Image quality: Excellent. Pulmonary arteries: Pulmonary arteries are normal in size, and demonstrate no intraluminal filling d efects to suggest central pulmonary embolism. Lungs and pleura: No evidence of pneumonia nor edema. Subpleural left lower lobe nodule in the publications sales representative ior lateral aspect measuring 6 mm. No pleural effusions or pneumothorax. Central and peripheral airw ays are patent. Mediastinum: Heart size is normal, without pericardial effusion. Moderate calcification of the chele nary vasculature. No mediastinal or hilar adenopathy. Thoracic aorta is normal in caliber and enhanc ement. Esophagus is normal in caliber. Small hiatal hernia. Bones and chest wall: No suspicious bony lesions. Ribs and thoracic spine appear intact throughout. No axillary or supraclavicular adenopathy. Thyroid not seen Abdomen: Visualized upper abdominal solid organs appear normal in the early arterial phase of enhanc ement. IMPRESSION: 1. Negative evaluation of the thoracic aorta. 2. Coronary artery disease. 3. Small hiatal hernia. 4. Left lower lobe pulmonary nodule. Follow-up is recommended as below. Solid nodules Solitary nodule size: <6 mm *low risk patients: no follow-up needed *high risk patients: optional CT at 12 months Solitary nodule size: 6-8 mm *low risk patients: follow-up at 6-12 months, then consider further follow-up at 18-24 months *high risk patients: initial follow-up CT at 6-12 months and then at 18-24 months if no change Solitary nodule size: >8 mm *either low or high risk patients *consider follow-up CT at 3 months, and/or CT-PET, and/or biopsy Multiple nodules size: <6 mm *low risk patients: no routine follow-up *high risk patients: optional CT at 12 months Multiple nodules size: 6-8 mm *low risk patients: follow-up at 3-6 months, then consider further follow-up at 18-24 months *high risk patients: follow-up at 3-6 months, then at 18-24 months if no change Multiple nodules size: >8 mm *low risk patients: follow-up at 3-6 months, then consider further follow-up at 18-24 months *high risk patients: follow-up at 3-6 months, then at 18-24 months if no change Subsolid nodules Solitary pure ground-glass nodule *nodule size <6mm *no CT follow-up required *nodule size "e6mm *follow up CT at 6-12 months, then every 2 years until 5 years Solitary part-solid nodule *nodule size <6mm *no CT follow-up required *nodule size "e6mm *follow-up CT at 3-6 months *if unchanged, and solid component remains <6mm, then annual follow-up for 5 years Multiple subsolid nodules *nodule size <6mm *follow-up CT at 3-6 months *consider further follow-up at 2 and 4 years if stable *nodule size "e6mm *follow-up CT at 3-6 months subsequent management based on the most suspicious nodule(s) CLINICAL RECOMMENDATION STATEMENTS: In patients <35 years with an ITN detected on CT, MRI, or extrathyroidal ultrasound, the Committee re commends further evaluation with dedicated thyroid ultrasound if the nodule is "e1 cm and has no susp icious imaging features, and if the patient has normal life expectancy. In patients "e35 years with an ITN detected on CT, MRI, or extrathyroidal ultrasound, the Committee r ecommends further evaluation with dedicated thyroid ultrasound if the nodule is "e1.5 cm and has no s uspicious imaging features, and if the patient has normal life expectancy. (ACR, 2014) Reviewed by: Gonzales Baca MD on 12/04/2021 7:08 PM PST Approved by: Gonzales Baca MD on 12/04/2021 7:08 PM PST Station ID: [id number]
--- NOTE | 2021-12-04 19:12 | CT Report ---
PROCEDURE: ANGIO ABDOMEN/PELVIS W INDICATIONS: aorta protocol, chest/abd pain CONTRAST: IV CONTRAST: Optiray 320 ml: 100 PO CONTRAST: *NO PO CONTRAST TECHNIQUE: After the administration of intravenous contrast, 2.5 mm thick sections acquired from the diaphragm t o the symphysis. 10 mm maximum-intensity projection (MIP) reformats were then acquired. For radiati on dose reduction, the following was used: automated exposure control. COMPARISON: CT dated 11/25/2020 FINDINGS: Image quality: Excellent. Arterial tree: Moderate diffuse plaque within the abdominal aorta, without evidence of significant s tenosis, aneurysm, nor dissection. Mesenteric arteries: Celiac trunk, superior and inferior mesenteric arteries appear patent. Extravascular soft tissues: Lung bases are clear. Heart size is normal. Liver and spleen are hernandez l in size and enhancement. Gallbladder is within normal limits. Biliary system is non dilated. Redd creas enhances normally. No adrenal nodules. Septated cyst measuring 70 mm involving the inferior po le right kidney which demonstrates mural calcifications, which is not significantly changed. Kidneys are otherwise normal in size and enhancement, without hydronephrosis. Small hiatal hernia. Non opaci fied bowel loops are normal in wall thickness and caliber. Normal appendix. No free fluid or air. N o retroperitoneal or mesenteric adenopathy. No ventral hernias. No suspicious bony lesions. No akira tebral body compression fractures. IMPRESSION: 1. No acute process involving the abdominal aorta. 2. Small hiatal hernia. 3. Normal appendix. 4 Indeterminate right renal cyst. Follow-up renal protocol CT in 6 months recommended for further ass essment. Reviewed by: Gonzales Baca MD on 12/04/2021 7:10 PM PST Approved by: Gonzales Baca MD on 12/04/2021 7:10 PM PST Station ID: [id number]
[2021-12-04] MEDS ORDERED: MAG HYDROX/AL HYDROX/SIMETH 30 ML UDC PO STA (19:26)
[2021-12-04] MEDS ORDERED: LIDOCAINE VISCOUS 2% 15 ML UDC MM STA (19:26)
[2021-12-04] MEDS ORDERED: PANTOPRAZOLE 40 MG TABLET PO STA (19:45)
[2021-12-04 19:53] VITALS: BP 148/78
== END 2021-12-04 19:51 | disposition home or self-care (01) ==
LOC: ED 16:55
DX: R07.89 Other chest pain (principal); K44.9 Diaphragmatic hernia without obstruction or gangrene; K29.70 Gastritis, unspecified, without bleeding; R10.12 Left upper quadrant pain; R91.1 Solitary pulmonary nodule; N28.1 Cyst of kidney, acquired; I10 Essential (primary) hypertension; I25.10 Atherosclerotic heart disease of native coronary artery without angina pectoris; Z95.1 Presence of aortocoronary bypass graft; R01.1 Cardiac murmur, unspecified; Z79.82 Long term (current) use of aspirin
CPT/HCPCS: 36415; 71275; 74174; 80053; 83690; 84484; 85025; 93005; 99284; A9270; Q9967

== ENCOUNTER 2022-07-25 11:05 | Emergency (ER) | payer MEDICARE ==
--- NOTE | 2022-07-25 11:38 | ED Physician Documentation ---
PD HPI WOUND RECHECK - Stated complaint Stated Complaint: POST OP/HEAD PX/DRAINAGE - Chief complaint Chief Complaint: Back Pain - Histroy obtained from History obtained from: Patient - History of Present Illness Location: Back Timing - onset: How many days ago (5) Associated symptoms: Drainage, Other (some purple bruising developing right lateral soft tissue adjacent to the surgery.). No: Fever, Redness, Swelling Similar symptoms before: Has not had sx before Recently seen: Surgery (had spinal cyst and laminectomy in upper lumbar spine [address] Sanchez Neurosurgery for [facility]. No problems with surgery. noted some clear serous/sanguinous fluid on dressing 3 days ago a nd yesterday, but less today. Patient with mild headache. Not worse sitting up.). No: Clinic (was supposed to go to PCP clinic for recheck today but [employer] service disrupted and they could not make it across to the [facility].) Review of Systems Constitutional: denies: Fever, Chills Nose: denies: Rhinorrhea / runny nose, Congestion Throat: denies: Sore throat Cardiac: denies: Chest pain / pressure, Palpitations, Pedal edema Respiratory: denies: Cough GI: reports: Constipation (despite use of senna and docusate at home and one supository.). denies: Abdominal Pain, Nausea, Vomiting, Diarrhea Skin: denies: Rash, Lesions Neurologic: reports: Numbness (some numbness right leg with pain radiating, similar to the nerve compression of pre-operative.). denies: Focal weakness, Confused, Altered mental status PD PAST MEDICAL HISTORY - Past Medical History Cardiovascular: Hypertension, Coronary artery disease Respiratory: Asthma GI: GERD : Kidney stones Psych: Anxiety - Past Surgical History Past Surgical History: Yes Cardiovascular: CABG - Present Medications Home Medications: Ambulatory Orders Medication Instructions Recorded Confirmed Atorvastatin Calcium 10 mg PO HS 03/28/13 07/25/22 Cholecalciferol (Vitamin D3) 2,000 unit PO DAILY 03/28/13 07/25/22 [Vitamin D-3] Levothyroxine [Synthroid] 125 mcg PO QDAC 03/28/13 07/25/22 Metoprolol Succinate [Toprol Xl] 50 mg PO DAILY 03/28/13 07/25/22 Multivitamin [Multivitamins] 1 each PO DAILY 03/28/13 07/25/22 lisinopriL [Prinivil] 10 mg PO DAILY 03/28/13 07/25/22 Acetaminophen [Tylenol] 650 mg PO Q6H PRN 07/25/22 07/25/22 Donepezil [Aricept] 5 mg PO DAILY 07/25/22 07/25/22 Lactulose 20 ml PO BID PRN #240 ml 07/25/22 oxyCODONE [Roxicodone] 5 mg PO Q6H PRN #20 tablet 07/25/22 oxyCODONE [Roxicodone] 5 mg PO Q6HR PRN 07/25/22 07/25/22 - Allergies Allergies/Adverse Reactions: Allergies Allergy/AdvReac Type Severity Reaction Status Date / Time cephalexin monohydrate * AdvReac Unknown Rash Verified 12/04/21 17:06 [From Keflex] - Social History Does the pt smoke?: No Smoking Status: Never smoker Does the pt drink ETOH?: Yes Does the pt have substance abuse?: No - Immunizations Immunizations are current?: Yes - POLST Patient has POLST: No PD ED PE NORMAL - Vitals Vital signs reviewed: Yes - General General: Alert and oriented X 3, No acute distress, Well developed/nourished - HEENT HEENT: Moist mucous membranes - Neck Neck: Supple, no meningeal sign, No adenopathy - Cardiac Cardiac: RRR, No murmur - Respiratory Respiratory: No respiratory distress, Clear bilaterally - Abdomen Abdomen: Soft, Non tender, Non distended. No: Normal bowel sounds (decreased) - Derm Derm: Normal color, Warm and dry - Extremities Extremities: No edema, No calf tenderness / cord - Neuro Neuro: Alert and oriented X 3, No motor deficit, No sensory deficit, Normal speech Results - Vitals Vitals: Vital Signs - 24 hr 07/25/22 07/25/22 07/25/22 11:18 11:55 13:22 Temperature 36.9 C 36.8 C Heart Rate 56 L 54 L 60 Respiratory 17 16 16 Rate Blood Pressure 111/58 L 109/57 L 110/60 O2 Saturation 97 97 100 Oxygen O2 Source Room air PD MEDICAL DECISION MAKING - ED course Complexity details: reviewed results, considered differential, d/w patient, d/w decorator consultant (protection officer for Neurosurgery service - they will see in clinic in followup in next couple of days. No change in treatment, since drainage decreased/stopped today and patient without significant headache. No signs of infection is good. ) Departure - Departure Disposition: 01 Home, Self Care Clinical Impression: Visit for wound check, Drainage from wound, Constipation due to opioid therapy Condition: Stable Record reviewed to determine appropriate education?: Yes Instructions: ED Constipation Follow-Up: MOSHE SAGE MD [Primary Care Provider] - ERIKA SANCHEZ MD [Physician No Access] - Prescriptions: Lactulose 20 ml PO BID PRN #240 ml PRN Reason: Constipation oxyCODONE [Roxicodone] 5 mg PO Q6H PRN #20 tablet PRN Reason: Pain Comments: I talked with an on-call provider for the neurosurgery service as Dr. Sanchez was in the operating room unavailable today. The concerns were for potential infection and also possible spinal fluid leak. The recommendation from the provider was that they would just kind of watch the amount of drainage given that it seems to be tapering down and would not necessitate a patch or such if it were dural leak. The wound also does not appear infected clinically. The provider did want to ensure that it was sealed over with glue or tapes. I reinforced the wound with the another layer of glue. Continue with dressing changes as previously directed. Regarding the constipation, continue with the docusate. You can add lactulose laxative/softener twice daily and see if that improves on the output. I prescribed more of your oxycodone to use for pain as needed. Continue with Tylenol every 3-4 times a day regularly as well. [facility] in [place]. The neurosurgery provider said there office would call you later today to set up a follow-up appointment for the next few days. I am prescribing a short course of narcotic pain medication for you. These are potentially dangerous and addictive medications that should be used carefully. These medications may constipate you. Take an [id number] stool softener such as docusate twice daily with plenty of water while taking these medications. If you go 24 hours without a bowel movement, take [id number] MiraLAX, per package instructions. Do not drink or drive while taking these medications. If you received narcotic or sedating medications while in the emergency department do not drive for 24 hours. Store this medication in a safe, secure p lace and out of reach of children. It is a violation of federal law to give or sell this medication to another person or to use in a manner other than prescribed. The ED will not refill narcotic prescriptions, including prescriptions lost or stolen. You can dispose of unwanted medications at the [facility]'s office or at several pharmacies such as [facility]. Discharge Date/Time: 07/25/22 13:37
[2022-07-25] MEDS ORDERED: oxyCODONE 5 MG TABLET PO STA (12:50)
[2022-07-25] MEDS ORDERED: LACTULOSE 10 GM /15 ML UDC PO STA (12:51)
[2022-07-25 13:35] VITALS: BP 110/60
== END 2022-07-25 13:37 | disposition home or self-care (01) ==
LOC: ED 11:05
DX: K59.03 Drug induced constipation (principal); T40.2X5A Adverse effect of other opioids, initial encounter; I10 Essential (primary) hypertension; Z95.1 Presence of aortocoronary bypass graft; Z48.01 Encounter for change or removal of surgical wound dressing
CPT/HCPCS: 99282; 99284; A9270

== ENCOUNTER 2023-02-21 08:00 | Outpatient (CLI) | payer MEDICARE | END 2023-02-21 23:59 | disposition home or self-care (01) | LOC: LAB 08:00 | PROVIDERS: ATTEND Nurse Practitioner | DX: L02.92 Furuncle, unspecified (principal) | CPT/HCPCS: 87070; 87205 ==

== ENCOUNTER 2023-09-27 14:45 | Emergency (ER) | payer MEDICARE ==
--- NOTE | 2023-09-27 15:06 | ED Physician Documentation ---
PD HPI HEENT - Stated complaint Stated Complaint: RT EAR AID STUCK - Chief complaint Chief Complaint: Heent - History obtained from History obtained from: Patient (Rubber tip of hearing aid stuck in right ear canal.) PD PAST MEDICAL HISTORY - Past Medical History Past Medical History: Yes Cardiovascular: Hypertension, Coronary artery disease Respiratory: Asthma Neuro: Dementia Endocrine/Autoimmune: HyPOthyroidism GI: GERD : Kidney stones HEENT: None Psych: Anxiety Musculoskeletal: Chronic back pain Derm: Eczema - Past Surgical History Past Surgical History: Yes Ortho: Spine surgery Cardiovascular: CABG - Present Medications Home Medications: Ambulatory Orders Medication Instructions Recorded Confirmed Atorvastatin Calcium 10 mg PO HS 03/28/13 07/25/22 Cholecalciferol (Vitamin D3) 2,000 unit PO DAILY 03/28/13 07/25/22 [Vitamin D-3] Levothyroxine [Synthroid] 125 mcg PO QDAC 03/28/13 07/25/22 Metoprolol Succinate [Toprol Xl] 50 mg PO DAILY 03/28/13 07/25/22 Multivitamin [Multivitamins] 1 each PO DAILY 03/28/13 07/25/22 lisinopriL [Prinivil] 10 mg PO DAILY 03/28/13 07/25/22 Acetaminophen [Tylenol] 650 mg PO Q6H PRN 07/25/22 07/25/22 Donepezil [Aricept] 5 mg PO DAILY 07/25/22 07/25/22 Lactulose 20 ml PO BID PRN #240 ml 07/25/22 oxyCODONE [Roxicodone] 5 mg PO Q6H PRN #20 tablet 07/25/22 oxyCODONE [Roxicodone] 5 mg PO Q6HR PRN 07/25/22 07/25/22 Neomycin/Polymyx/Hc Otic Drops 4 drops OT TID #1 each 09/27/23 [Cortisporin Ear Susp] - Allergies Allergies/Adverse Reactions: Allergies Allergy/AdvReac Type Severity Reaction Status Date / Time cephalexin monohydrate * AdvReac Unknown Rash Verified 09/27/23 14:58 [From Keflex] - Social History Does the pt smoke?: No Smoking Status: Never smoker Does the pt drink ETOH?: Yes Does the pt have substance abuse?: No - Immunizations Immunizations are current?: Yes - POLST Patient has POLST: No PD ED PE NORMAL - Vitals Vital signs reviewed: Yes - General General: Alert and oriented X 3, No acute distress - HEENT HEENT: Other (There is a piece of rubber deep in the ear canal on the right and also has mild abrasion of the canal itself.) - Neuro Neuro: Alert and oriented X 3 Results - Vitals Vitals: Vital Signs - 24 hr 09/27/23 14:58 Temperature 36.5 C Heart Rate 55 L Respiratory 16 Rate Blood Pressure 128/60 O2 Saturation 99 Oxygen O2 Source Room air Procedures - General procedure General procedure: Right ear foreign body removal, using alligator forceps the rubber tip was removed without issue. Departure - Departure Disposition: 01 Home, Self Care Clinical Impression: Foreign body in right ear Qualifiers: Encounter type: initial encounter Qualified Code(s): T16.1XXA - Foreign body in right ear, initial encounter Abrasion of right ear canal Qualifiers: Encounter type: initial encounter Qualified Code(s): S00.411A - Abrasion of right ear, initial encounter Condition: Good Record reviewed to determine appropriate education?: Yes Instructions: ED Foreign Body Ear Canal Prescriptions: Neomycin/Polymyx/Hc Otic Drops [Cortisporin Ear Susp] 4 drops OT TID #1 each Comments: You can use the eardrops for the scraped ear canal for the next few days. Return for new or worsening symptoms. Follow-up with your pouncing lathe operator as per routine.
[2023-09-27 15:16] VITALS: BP 128/60; O2SAT 99
== END 2023-09-27 15:08 | disposition home or self-care (01) ==
LOC: ED 14:45
DX: T16.1XXA Foreign body in right ear, initial encounter (principal); S00.411A Abrasion of right ear, initial encounter; X58.XXXA Exposure to other specified factors, initial encounter; I10 Essential (primary) hypertension
CPT/HCPCS: 69200; 99282; 99283

== ENCOUNTER 2023-10-09 12:00 | Emergency (ER) | payer MEDICARE ==
[2023-10-09 12:14] VITALS: BP 154/104; O2SAT 98
--- NOTE | 2023-10-09 12:38 | ED Physician Documentation ---
PD HPI HEENT - Stated complaint Stated Complaint: RT EAR FB - Chief complaint Chief Complaint: Heent - History obtained from History obtained from: Patient - History of Present Illness Timing - onset: Today Timing - duration: Days Timing - details: Abrupt onset Pain level max: 0 Pain level now: 0 - Additional information Additional information: Patient states that he was told there is a foreign body in the right ear. He does not know what it is or how long it has been there. He has no symptoms. No ear pain. No difficulty hearing. Review of Systems Constitutional: denies: Fever, Chills PD PAST MEDICAL HISTORY - Past Medical History Cardiovascular: Hypertension, Coronary artery disease Respiratory: Asthma Neuro: Dementia Endocrine/Autoimmune: HyPOthyroidism GI: GERD : Kidney stones HEENT: None Psych: Anxiety Musculoskeletal: Chronic back pain Derm: Eczema - Past Surgical History Past Surgical History: Yes Ortho: Spine surgery Cardiovascular: CABG - Present Medications Home Medications: Ambulatory Orders Medication Instructions Recorded Confirmed Atorvastatin Calcium 10 mg PO HS 03/28/13 07/25/22 Cholecalciferol (Vitamin D3) 2,000 unit PO DAILY 03/28/13 07/25/22 [Vitamin D-3] Levothyroxine [Synthroid] 125 mcg PO QDAC 03/28/13 07/25/22 Metoprolol Succinate [Toprol Xl] 50 mg PO DAILY 03/28/13 07/25/22 Multivitamin [Multivitamins] 1 each PO DAILY 03/28/13 07/25/22 lisinopriL [Prinivil] 10 mg PO DAILY 03/28/13 07/25/22 Acetaminophen [Tylenol] 650 mg PO Q6H PRN 07/25/22 07/25/22 Donepezil [Aricept] 5 mg PO DAILY 07/25/22 07/25/22 Lactulose 20 ml PO BID PRN #240 ml 07/25/22 oxyCODONE [Roxicodone] 5 mg PO Q6H PRN #20 tablet 07/25/22 oxyCODONE [Roxicodone] 5 mg PO Q6HR PRN 07/25/22 07/25/22 Neomycin/Polymyx/Hc Otic Drops 4 drops OT TID #1 each 09/27/23 [Cortisporin Ear Susp] - Allergies Allergies/Adverse Reactions: Allergies Allergy/AdvReac Type Severity Reaction Status Date / Time cephalexin monohydrate * AdvReac Unknown Rash Verified 10/09/23 12:10 [From Keflex] - Social History Does the pt smoke?: No Smoking Status: Never smoker Does the pt drink ETOH?: Yes Does the pt have substance abuse?: No - Immunizations Immunizations are current?: Yes - POLST Patient has POLST: No PD ED PE NORMAL - Vitals Vital signs reviewed: Yes - General General: Alert and oriented X 3, No acute distress - HEENT HEENT: Other (Left ear is normal. Right ear has a small anglin rubber foreign object in the canal.) - Neck Neck: Supple, no meningeal sign - Neuro Neuro: Alert and oriented X 3 Results - Vitals Vitals: Vital Signs - 24 hr 10/09/23 12:10 Temperature 36.5 C Heart Rate 51 L Respiratory 16 Rate Blood Pressure 154/104 H O2 Saturation 98 Oxygen O2 Source Room air Procedures - FB removal FB location: Ear Removal method: Other (Hooked 18g needle) FB removal aftercare: No complications, Patient tolerated well, Removed successfully PD Medical Decision Making - ED course Complexity details: considered differential, d/w patient ED course: A 18-gauge needle was inserted into the ear canal and into the center of the rubber earpiece. The hook was then used to grasp the inner aspect of the rubber earpiece and it was removed. There is a small amount of blood in the canal, no tyree laceration. No residual foreign body. Tympanic membrane intact. Patient counseled regarding signs and symptoms for which I believe and urgent re- evaluation would be necessary. Patient with good understanding of and agreement to plan and is comfortable going home at this time This document was made in part using voice recognition software. While efforts are made to proofread this document, sound alike and grammatical errors may occur. Departure - Departure Disposition: 01 Home, Self Care Clinical Impression: Foreign body in right ear Qualifiers: Encounter type: initial encounter Qualified Code(s): T16.1XXA - Foreign body in right ear, initial encounter Abrasion of right ear canal Qualifiers: Encounter type: initial encounter Qualified Code(s): S00.411A - Abrasion of right ear, initial encounter Condition: Good Instructions: ED Foreign Body Ear Canal Follow-Up: MOSHE SAGE MD [Primary Care Provider] - As Needed Comments: The foreign body was removed from your ear. There is a small amount of bleeding, this should resolve on its own quickly but you may notice a drop or 2 of blood from your ear today. Please return if you worsen. Forms: PCP List Discharge Date/Time: 10/09/23 12:41
== END 2023-10-09 12:41 | disposition home or self-care (01) ==
LOC: ED 12:00
DX: T16.1XXA Foreign body in right ear, initial encounter (principal); W44.8XXA Other foreign body entering into or through a natural orifice, initial encounter; S00.411A Abrasion of right ear, initial encounter; I10 Essential (primary) hypertension; E03.9 Hypothyroidism, unspecified; F03.90 Unspecified dementia, unspecified severity, without behavioral disturbance, psychotic disturbance, mood disturbance, and anxiety; Z79.899 Other long term (current) drug therapy
CPT/HCPCS: 69200; 99282; 99283